=== PATIENT | female | born 1985 | race Hispanic/Latino ===

== ENCOUNTER 2019-08-15 11:32 | Observation (INO) | payer MEDICAID | END 2019-08-15 13:31 | disposition home or self-care (01) | LOC: LDH 11:32 | DX: O41.02X0 Oligohydramnios, second trimester, not applicable or unspecified (principal); Z3A.27 27 weeks gestation of pregnancy | CPT/HCPCS: 59025; 76815; G0378 ×2 ==

== ENCOUNTER 2019-09-25 15:47 | Observation (INO) | payer BC, MEDICAID ==
[~2019-09-25] VITALS: Ht 165.1 cm; Wt 149.7 kg
[2019-09-25 16:29] LABS: APPEARANCE,URINE Cloudy (CLEAR); BILIRUBIN,URINE Negative (NEGATIVE); COLOR,URINE Dark Yellow (YELLOW); GLUCOSE, URINE (UA) Negative (NEGATIVE); KETONES,URINE Trace mg/dL (NEGATIVE); LEUKOCYTE ESTERASE ,URINE Trace (NEGATIVE); NITRATE,URINE Negative (NEGATIVE); OCCULT BLOOD,URINE Negative (NEGATIVE); PROTEIN,URINE Negative (NEGATIVE)
[2019-09-25 16:36] LABS: BACTERIA,URINE Few /HPF (None Seen); RBC,URINE 0-1 /HPF (0-1); SQUAMOUS EPITHELIAL CELL,UR Few /HPF (0-2)
[2019-09-25 16:37] LABS: AMORPHOUS SEDIMENT,UR Few /LPF (None Seen); CALCIUM OXALATE CRYSTALS,UR Few /LPF (None Seen); MUCUS,URINE Few LPF (None Seen)
== END 2019-09-25 18:20 | disposition home or self-care (01) ==
LOC: LDH 15:47
DX: O26.893 Other specified pregnancy related conditions, third trimester (principal); R10.9 Unspecified abdominal pain; Z3A.33 33 weeks gestation of pregnancy
CPT/HCPCS: 59025; 76805; 81001; G0378 ×2

== ENCOUNTER 2020-05-12 07:45 | Day surgery (SDC) | payer BC, MEDICAID ==
[~2020-05-12] VITALS: Ht 165.1 cm; Wt 145.1 kg
[~2020-05-12 07:45] MED LIST: PREN1TAB80 PO; SODIUM CHLORIDE 0.9% 1000ML 1,000 ML IV ONE
[2020-05-12 08:50] VITALS: BP 132/84
[2020-05-12] MEDS ORDERED: PROPOFOL 10 MG/ML 20ML VIAL IV ONE (09:19)
[2020-05-12 09:40] VITALS: BP 119/81
[2020-05-12 09:45] VITALS: BP 120/81
[2020-05-12 09:50] VITALS: BP 134/80
[2020-05-12 09:55] VITALS: BP 126/80
[2020-05-12 10:00] VITALS: BP 124/80
== END 2020-05-12 10:20 | disposition home or self-care (01) ==
LOC: DAH 07:45 → ENDO 07:45
PROVIDERS: ATTEND Internal Medicine
DX: K29.50 Unspecified chronic gastritis without bleeding (principal); Z20.828 Contact with and (suspected) exposure to other viral communicable diseases; K80.20 Calculus of gallbladder without cholecystitis without obstruction; R94.5 Abnormal results of liver function studies; F41.9 Anxiety disorder, unspecified; F32.9 Major depressive disorder, single episode, unspecified; E66.9 Obesity, unspecified; Z79.899 Other long term (current) drug therapy; Z98.890 Other specified postprocedural states; Z86.39 Personal history of other endocrine, nutritional and metabolic disease; Z68.43 Body mass index [BMI] 50.0-59.9, adult
CPT/HCPCS: 43237; 43239; 81025; A4215; A4221; A4222; A4223; A4606; A4615; A4657; A4663; C9803; J2704; J7030; U0003